=== PATIENT | female | born 1965 | race Caucasian/White ===

== ENCOUNTER 2020-04-08 19:26 | Emergency (ER) | payer SELFPAY ==
[~2020-04-08] VITALS: Ht 162.6 cm; Wt 52.2 kg
[2020-04-08 19:48] VITALS: BP 130/69
--- NOTE | 2020-04-08 20:20 | NUR ---
NO NURSING INTERVENTION ORDERD BY PRIYANKA ABREU
--- NOTE | 2020-04-08 20:27 | NUR ---
COVID SWAB COLLECTED AND SENT TO LAB.
--- NOTE | 2020-04-08 20:27 | NUR ---
Patient discharged with v/s stable. Written and verbal after care instructions given and explained. Patient verbalized understanding. Ambulatory with steady gait. All questions addressed prior to discharge. Advised to follow up with PMD.
== END 2020-04-08 20:29 | disposition home or self-care (01) ==
LOC: MED 19:26
DX: J02.9 Acute pharyngitis, unspecified (principal); Z20.828 Contact with and (suspected) exposure to other viral communicable diseases
CPT/HCPCS: 99283; U0003